=== PATIENT | male | born 1970 | race Caucasian/White ===

== ENCOUNTER 2023-10-13 12:36 | Emergency (ER) | payer OTHER, SELFPAY ==
--- NOTE | ~2023-10-13 | XR_ITS ---
Clinical Indication: Chest pain PA and lateral views of the chest: Comparison: 10/01/2015 Findings: The lungs are clear, without evidence of focal consolidation or pleural effusion. Cardiome diastinal silhouette is within normal limits. Bones and soft tissues are unremarkable. Impression: Normal chest. Reviewed, dictated and finalized at location . Impression: Normal chest.
--- NOTE | 2023-10-13 12:38 | ECG_ITS ---
SEE SCANNED COPY FOR CONFIRMED REPORT MTDD
[2023-10-13 12:45] VITALS: BP 137/94; PULSE 66; RESP 16; TEMP 36.4; O2SAT 100
[2023-10-13 13:00] LABS: Basophils Absolute Auto 0.1 K/mm3 (0.0-0.1); Basophils Percent Auto 1.4 % (0.2-1.2); Eosinophils Absolute Auto 0.4 K/mm3 (0-0.3); Eosinophils Percent Auto 5.6 % (0-4.4); Hematocrit 45.9 % (42.0-52.0); Hemoglobin 14.9 g/dL (14.0-18.0); Immature Granulocyte Absolute 0.01 K/mm3 (0.00-0.031); Immature Granulocyte Percent A 0.2 % (0-0.5); Lymphocytes Percent Auto 36.3 % (18.3-44.2); Mean Corpuscular HGB Conc 32.5 g/dl (32-36); Mean Corpuscular Hemoglobin 29.5 pg (26-34); Mean Corpuscular Volume 90.9 fl (80-100); Mean Platelet Volume 8.9 fl (7.4-10.4); Monocytes Absolute Auto 0.6 K/mm3 (0.1-0.6); Monocytes Percent Auto 8.8 % (2.6-8.5); Neutrophils Absolute Auto 3.2 K/mm3 (1.3-6.7); Neutrophils Percent Auto 47.7 % (45.5-73.1); Platelet Count Result 360 k/mm3 (150-375); Red Blood Count 5.05 M/mm3 (4.6-6.20); Red Cell Distribution Width 12.5 % (11.5-14.5); White Blood Count 6.6 K/mm3 (4.5-10.0)
[2023-10-13 13:05] LABS: Alanine Aminotransferase 59 U/L (6-50); Albumin Level 4.9 g/dL (3.5-5.1); Alkaline Phosphatase 68 U/L (38-126); Anion Gap 10 mmol/L (4-12); Aspartate Amino Transferase 25 U/L (17-59); Bilirubin,Total 0.7 mg/dL (0.2-1.3); Blood Urea Nitrogen 13 mg/dL (9-20); Calcium 9.5 mg/dL (8.4-10.2); Carbon Dioxide 25 mmol/L (22-30); Chloride 103 mmol/L (98-107); Estimated CRCL calculation 102 ml/min; Estimated Glomerular Filt Rate > 60; Glucose 97 mg/dL (65-110); Lipase 148 U/L (23-300); Potassium 3.8 mmol/L (3.4-5.0); Sodium 138 mmol/L (137-145)
[2023-10-13 13:10] LABS: INR 0.9; Prothrombin Time 13.1 Seconds (11.1-14.7)
[2023-10-13 13:11] LABS: Partial Thromboplastin Time 30.6 Seconds (22.3-36.8)
[2023-10-13 13:16] LABS: Troponin I < 0.012 ng/mL (0.000-0.034)
--- NOTE | 2023-10-13 14:06 | ED.CHESTPAIN ---
HPI - Chest Pain General Chief Complaint: Chest Pain Stated Complaint: chest pain Time Seen by Provider: 10/13/23 13:47 Source: patient and RN notes reviewed Mode of arrival: ambulatory Limitations: no limitations History of Present Illness HPI narrative: This is a 53 year old male with history of hyperlipidemia who presents from evaluation of chest pain. Patient states yesterday he had tingling all over for 1 hour. HE states today he was sitting at his chair he developed left arm pain that radiated to his chest. He states this lasted for 30 minutes . He denies associated nausea, vomiting, shortness of breath , dizziness. He reports sweating. Denies heart disease. He had stress test years ago. MD complaint: chest pain Related Data Allergies Allergy/AdvReac Type Severity Reaction Status Date / Time No Known Allergies Allergy Unverified 04/20/12 16:30 Review of Systems Constitutional: Constitutional: Denies weakness Cardiovascular: Cardiovascular: Reports chest pain, Denies syncope, Denies rapid heart rate, Denies irregular heart rhythm, Denies leg edema and Denies dyspnea Respiratory: Respiratory: Denies chest congestion, Denies hemoptysis, Denies excessive phlegm production and Denies dyspnea Gastrointestinal: Gastrointestinal: Denies abdominal pain, Denies hematochezia, Denies diarrhea and Denies vomiting Genitourinary: Genitourinary: Denies hematuria, Denies dysuria, Denies penile discharge and Denies testicular pain Musculoskeletal: Musculoskeletal: Denies joint swelling, Denies loss of height and Denies muscle weakness Neurologic: Denies syncope, Denies focal weakness and Denies weakness PMFSH Past Medical History Medical History (Updated 10/13/23 @ 17:15 by Promise Watkins MD) High cholesterol Surgical History Surgical History (Updated 10/13/23 @ 14:07 by Promise Watkins MD) No pertinent past surgical history Social History Social History (Updated 10/13/23 @ 14:07 by Promise Watkins MD) Smoking status: Former smoker Alcohol intake: current Exam Const: General: no acute distress and alert Nutritional Appearance: well nourished Orientation/consciousness: patient oriented x3 Limitations: no limitations HENMT: Head: normal to inspection Face and sinus: normal facial exam Mouth: Yes Normal oral and palatal mucosa present, Yes lip normal and Yes moist mucous membranes Throat: posterior oropharynx normal and uvula midline Eyes: EOM: EOMs intact bilaterally Neck: Neck: normal visual inspection Chest: Chest palpation & inspection: normal inspection of the chest Resp: Effort & Inspection: normal respiratory effort Auscultation: clear to auscultation bilaterally Cardio: Rate: regular rate Rhythm: regular rhythm Heart sounds: no murmurs GI: GI Palp: Yes Soft to palpation, No Tenderness to palpation present (GI), No Guarding due to palpation present (GI) and No Rigid due to palpation Auscultation: normal bowel sounds Skin: General skin exam: normal color Rashes: no rashes Wounds: no wounds Neuro: General: patient oriented x3 and moves all extremities Cranial nerves: Yes Nystagmus not present Speech: normal speech Extrem: General: normal to inspection and no pedal edema Psych: Mental Status: mental status grossly normal Affect: normal affect Attitude: cooperative Course Reevaluation(s) Reevaluation #1: PAtient is no acute distress . He denies any chest pain. PERC negative. Troponin negative x 2. Date: 10/13/23 Time: 17:13 Vital Signs Vital signs: Vital Signs Temperature 97.5 F L 10/13/23 12:45 Pulse Rate 66 10/13/23 12:45 Respiratory Rate 16 10/13/23 12:45 Blood Pressure 137/94 H 10/13/23 12:45 Pulse Oximetry 100 10/13/23 12:45 Oxygen Delivery Room Air 10/13/23 12:45 Temperature 97.5 F L 10/13/23 12:45 Pulse Rate 66 10/13/23 12:45 Respiratory Rate 16 10/13/23 12:45 Blood Pressure 137/94 H 10/13/23 12:45 Pulse Oximetry 100
--- NOTE | 2023-10-13 15:45 | ECG_ITS ---
SEE SCANNED COPY FOR CONFIRMED REPORT MTDD
[2023-10-13 17:03] LABS: Troponin I < 0.012 ng/mL (0.000-0.034)
[2023-10-13 17:21] VITALS: BP 132/95; PULSE 73; RESP 25; O2SAT 99
== END 2023-10-13 17:22 | disposition home or self-care (01) ==
PROVIDERS: Emergency Medicine; Emergency Provider General Practice; PCP Emergency Medicine
DX: R07.89 Other chest pain (principal); E78.5 Hyperlipidemia, unspecified; Z87.891 Personal history of nicotine dependence
CPT/HCPCS: 36415; 71046; 80053; 83690; 84484; 85025; 85610; 85730; 93005; 99284

== ENCOUNTER 2023-10-31 05:54 | Day surgery (SDC) | payer OTHER, SELFPAY ==
[2023-08-16 13:13] VITALS: BMI 31.7
--- NOTE | 2023-10-25 12:42 | P.HP_ITS ---
History of Present Illness History of Present Illness Consent: Risks, benefits, and alternatives have been discussed and questions answered. Patient agrees to proceed with procedure. Chief complaint: Neoplasm Screening Narrative: Ariel Johnson is a 53 year old male referred for colon cancer screening. He had a colonoscopy a few years ago and was told at that time that this colon was long and they could not reach the cecum. likewise he was told his prep was not complete. He also had a polyp removed at that time. Review of Systems Review of Systems: All systems reviewed & are unremarkable except as noted in HPI and below PMFSH Past Medical History Medical History High cholesterol Surgical History Surgical History No pertinent past surgical history Social History Social History Smoking status: Former smoker Alcohol intake: current Drinks per week: 12 Substance use type: does not use Living arrangements: with family Meds Home Medications and Allergies Home Medications Medication Instructions Recorded Confirmed Type Glucosamine 2,000 meq PO DAILY 10/17/23 10/31/23 History Lactobacillus acidophilus 10 mg PO DAILY 10/17/23 10/31/23 History (Acidophilus capsule) [place] 3 1 tab-cap PO DAILY 10/17/23 10/31/23 History atorvastatin 20 mg tablet 20 mg PO DAILY 10/17/23 10/31/23 History coenzyme Q10 100 mg capsule 100 mg PO DAILY 10/17/23 10/31/23 History zolpidem 6.25 mg tablet,extended 6.25 mg PO HS 10/17/23 10/31/23 History release,multiphase Allergies Allergy/AdvReac Type Severity Reaction Status Date / Time No Known Allergies Allergy Verified 10/31/23 06:34 Exam Const: General: alert Orientation/consciousness: patient oriented x3 Resp: Auscultation: clear to auscultation bilaterally Cardio: Rhythm: regular rhythm GI: GI Palp: Yes Soft to palpation and No Tenderness to palpation present (GI) Neuro: General: patient oriented x3 Assessment and Plan Assessment and plan (1) Colon cancer screening: Code(s): Z12.11 - Encounter for screening for malignant neoplasm of colon Status: Acute Assessment and Plan: Colonoscopy with possible biopsy or polypectomy or cautery or injection of substances.
--- NOTE | 2023-10-31 06:35 | WPDANESEPPF ---
Anes - Initial Pre Proc Eval Procedure: Operation Date: 10/31/23 08:00 Proposed Procedures p Colonoscopy - Sung Cantu MD Date/Time: 10/31/23 06:35 Surgeon: Sung Cantu MD Pre Op Diagnosis: Neoplasm Screening Patient Data Age: 53 Gender: M Height: 1.8 m Weight: 99 kg Allergies Allergy/AdvReac Type Severity Reaction Status Date / Time No Known Allergies Allergy Verified 10/31/23 06:34 Home Medications Medication Instructions Recorded Confirmed Type Glucosamine 2,000 meq PO DAILY 10/17/23 10/31/23 History Lactobacillus acidophilus 10 mg PO DAILY 10/17/23 10/31/23 History (Acidophilus capsule) [place] 3 1 tab-cap PO DAILY 10/17/23 10/31/23 History atorvastatin 20 mg tablet 20 mg PO DAILY 10/17/23 10/31/23 History coenzyme Q10 100 mg capsule 100 mg PO DAILY 10/17/23 10/31/23 History zolpidem 6.25 mg tablet,extended 6.25 mg PO HS 10/17/23 10/31/23 History release,multiphase Patient hx anesthesia problems: none Family hx anesthesia problems: none Results Review: All pre-operative results and documents have been reviewed as part of the pre-operative evaluation. [facility] Past Medical History Medical History High cholesterol Surgical History Surgical History No pertinent past surgical history Social History Social History (Updated 10/31/23 @ 08:20 by Hunter Tran DO) Smoking status: Former smoker Alcohol intake: current Drinks per week: 12 Substance use: current Substance use type: marijuana Other substance usage details: occasional Living arrangements: with family Anes - Eval Final PreProcedure Day of Procedure 10/31/23 06:35 Patient weight: obese Heart: regular rate and rhythm Lungs: clear to auscultation Airway: Mallampati scale class II Neurological: alert and oriented Last oral intake: >/= 8 hours ASA classification: II Emergent: no Anesthetic plan: proceed Anesthesia type and monitoring: general GIVS and standard monitoring Results Review: All pre-operative results and documents have been reviewed as part of the pre-operative evaluation. Informed Consent: The patient's anesthetic plan and its attendant risks and benefits were discussed with the patient/family/POA. Questions were solicited and answers provided to the satisfaction of the patient/family/POA.
[2023-10-31 06:42] VITALS: BP 126/94; PULSE 67; RESP 14; TEMP 36.6; O2SAT 97
[2023-10-31] MEDS: LACTATED RINGERS 1,000 ML 150 ML IV CONT (06:59)
[2023-10-31 08:14] VITALS: BP 110/76; PULSE 67; RESP 14; O2SAT 97
[2023-10-31 08:24] VITALS: BP 100/76; PULSE 67; RESP 16; O2SAT 95
[2023-10-31 08:34] VITALS: BP 114/76; PULSE 68; RESP 18; O2SAT 96
--- NOTE | 2023-10-31 11:57 | WPDANESPN ---
Anes - Prog Note Post-Op Date/Time: 10/31/23 11:57 Cardiovascular status: normal Respiratory status: normal Airway patency: baseline Mental status: baseline Post-Op hydration status: normal Vital Signs: Last Vital Signs Temp 36.6 C 10/31/23 06:42 Pulse 68 10/31/23 08:34 Resp 18 10/31/23 08:34 BP 114/76 10/31/23 08:34 Pulse Ox 96 10/31/23 08:34 O2 Del Method Room Air 10/31/23 08:34 Pain Score (VAS): 0 I/O: Intake & Output 10/30/23 10/31/23 10/31/23 23:59 07:59 15:59 Intake Total 400 Balance 400 Post-procedural complaints: none Patient Feedback: Patient satisfied with anesthetic care. Other Findings: Patient vital signs back to baseline. Patient denies nausea and vomiting. Patient's pain under control. Patient OK for discharge.
== END 2023-10-31 08:43 | disposition home or self-care (01) ==
PROVIDERS: PCP Emergency Medicine; Visit Provider Internal Medicine Gastroenterology
PROC: 0DJD8ZZ Inspection of Lower Intestinal Tract, Via Natural or Artificial Opening Endoscopic (ICD-10-PCS; CPT 45378; principal; 2023-10-31 08:00)
DX: Z12.11 Encounter for screening for malignant neoplasm of colon (principal)
CPT/HCPCS: 45378